=== PATIENT | male | born 1935 | race Caucasian/White ===

== ENCOUNTER 2016-12-13 12:13 | Inpatient (IN) | payer MEDICARE, OTHER ==
--- NOTE | ~2016-12-13 | CN ---
Consultation Report [facility] [address] [place]. [address] NAME: DUSTIN CASTELAN : 37 STATUS : ADM IN PAT#: [id number] AGE: 81 ADM/REG DATE : 12/13/16 MR#: [id number] REPORT SERV DATE: 12/15/16 DICTATED BY: DATE: REPORT STATUS : Draft TRANSCRIBED BY: MODL DATE: 12/15/16 NEUROLOGY CONSULTATION DATE OF CONSULTATION: 12/15/2016 REASON FOR CONSULT: Stroke and gait abnormality. HISTORY OF PRESENT ILLNESS: This is a 81-year-old male who presented to [facility] secondary to increasing difficulty walking according to the patient's roommate who are all Pent[employer] priests. The patient was noted to have increasing difficulty ambulating for at least the past six months with the patient averaging about 1 falls per week until roughly a week ago when the patient had sustained 4 falls in that week. The patient, about 6 months ago, had to start using walker to ambulate secondary to balance issue as well as apparent bilateral lower extremity weakness as well as shuffling gait with the patient's companions reports that the patient has been taking increasingly small steps when ambulating and has been unsteady. The patient, roughly a week ago, has sustained a fall, where the patient hit his head, otherwise, afterwards was noted to have a series of falls. The patient episodically will get muscle pains in the anterior thigh area as well as occasional back pain but no constant pain was noted. The patient does complain of some cervical pain after recent falls. The patient does have issues with constipation and sometimes alternating with the constipation and diarrhea. The patient recently, over at least the past two days to a week, was noted to have difficulty controlling the patient's bladder. Otherwise the patient's roommate reports the patient appeared to have increasing difficulties with word finding as well as apparent confusion with the patient taking a long time to answer questions at times and sometimes appeared to have disorientation with the patient noted to have word-finding difficulty, apparently worse over the past week-to-two weeks. The patient also was noted to have a history of resting tremor for the past several months to possibly several years that was very mild; does not appear to have any significant worsening. The patient denies any lightheadedness or orthostasis with standing up. No recent illness, fever, chills, nausea, vomiting, chest pain, or shortness of breath was otherwise reported. No recent changes in medication was otherwise reported. 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 ALLERGIES: THE PATIENT WAS NOTED TO HAVE NO KNOWN DRUG ALLERGIES. HOME MEDICATIONS: Consist of Maxzide; Proscar; atenolol; lisinopril; Prozac; and inhaler. FAMILY HISTORY: Significant for coronary artery disease. PAST MEDICAL HISTORY: The patient's past medical history is significant for COPD as well as hypertension and was noted to have difficulty with balance. No history of dementia or hallucination. Consultation Report [place] [id number] [facility] [place]. [address] NAME: DUSTIN CASTELAN : 37 STATUS : ADM IN [facility]#: [id number] AGE: 81 ADM/REG DATE : 12/13/16 MR#: [id number] REPORT SERV DATE: 12/15/16 DICTATED BY: DATE: REPORT STATUS : Draft TRANSCRIBED BY: MODL DATE: 12/15/16 REVIEW OF SYSTEMS: Negative except for those mentioned in the HPI. PHYSICAL EXAMINATION: VITAL SIGNS: At the time of evaluation, the patient was noted to have vital signs with T- max of 98.5, heart rate of 56 to 77, respirations of 16 to 18, and blood pressure of 117 to 195 over 60 to 100. GENERAL: The patient is well developed, well nourished, in no acute distress. CARDIOVASCULAR: Regular rate and rhythm. No carotid bruits were otherwise auscultated. PULMONARY: Examination was clear to auscultation bilaterally. NEUROLOGICAL: Generally the patient is alert and oriented to person, place, and not to year or month. The patient, now spoke with Theodore, cannot answer who the President is; was noted to have bradykinesia at the time of evaluation with the patient noted to have decreased attention span; was also noted to have massive facies at the time of evaluation. Cranial nerves 2 through 12, pupils equal, round, and reactive to light. Extraocular eye movement was noted to be intact. The patient was noted to have intact [id number] response at the time of evaluation. Symmetrical facial expression. Midline tongue. Normal palatal movement. Decreased hearing in bilateral ears. Symmetrical facial sensation bilaterally. The patient was noted to have mild resting tremor, left greater than right at the time of evaluation with the patient noted to have rigidity, again left worse than right at the time of evaluation. 4+/5 bilateral upper extremity and bilateral lower extremity strength at the time of evaluation. Reports symmetrical sensation. Was noted to have mild postural tremor as well as intentional tremor. No clear ataxia noted. The patient was noted to have difficulty sitting up unsupported with retropulsion at the time of evaluation, otherwise. Gait was not evaluated secondary to difficulty sitting up. LABORATORY STUDIES: The patient's laboratory studies demonstrated white blood cell count of 7.7, hemoglobin of 13.1, hematocrit of 36.9, and platelet count of 134. Chemistry panel: Sodium 140, potassium of 3.2, chloride of 106, bicarb of 27, BUN of 17, and creatinine 0.90. Glucose of 96, calcium of 8.8, and magnesium of 2.0. At the time of evaluation, the patient was noted to have MRI of the brain demonstrated left subcortical periventricular stroke that is acute. IMPRESSION: 1. Left subcortical stroke. We will continue aspirin and Lipitor. Counseled the patient regarding tobacco cessation. PT/OT, echocardiogram is pending. We will obtain fasting lipid panel and hemoglobin A1c with morning labs. 2. Gait abnormality ongoing for the past six months. It is unlikely the patient's stroke is the reason for the patient's ongoing gait abnormality preceding the event as the patient's stroke appeared to be acute. The patient's stroke however may have contributed to the acute worsening and more frequent falls. The patient does have symptoms concerning for possible Parkinson's disease including bradykinesia as well as resting tremor as well as small steps on walking. We will start the patient on trial of Sinemet as well as check MRI of the C-spine. We will also check a laboratory study Consultation Report [place] [id number] [place]. [address] NAME: DUSTIN CASTELAN : 37 STATUS : ADM IN PAT#: [id number] AGE: 81 ADM/REG DATE : 12/13/16 MR#: [id number] REPORT SERV DATE: 12/15/16 DICTATED BY: DATE: REPORT STATUS : Draft TRANSCRIBED BY: MODL DATE: 12/15/16 including vitamin B12, folate, TSH, free T4, and serum CPK. We will continue PT/OT treatment and evaluation and possible rehab. RECOMMENDATIONS: 1. Aspirin and Lipitor. 2. Vitamin B12, folate, TSH, free T4, CPK level with morning labs. 3. Fasting lipid panel and hemoglobin A1c. 4. Echocardiogram pending. 5. PT/OT. 6. MRI of C-spine without contrast. 7. Sinemet 25/100 mg half tablet p.o. t.i.d. 8. Orthostatic vitals. CCH/MODL Rodri Gil MD / [id number] CC: DO Bryant Pitts M.D.
--- NOTE | ~2016-12-13 | DS ---
Discharge Summary [place] [id number] [place]. [address] NAME: DUSTIN CASTELAN : 37 STATUS : DIS IN PAT#: [id number] AGE: 81 ADM/REG DATE : 12/13/16 MR#: [id number] REPORT SERV DATE: 12/21/16 DICTATED BY: CHIDI BEAN DATE: 12/20/16 REPORT STATUS : Draft TRANSCRIBED BY: MODL DATE: 12/20/16 ADMISSION DATE: 12/13/2016 DISCHARGE DATE: 12/20/2016 ADDENDUM: orthostasis taking two minutes to go from seated to standing position. Hydralazine 25 p.o. t.i.d. p.r.n. systolic more than 170, aspirin 325 p.o. daily, Lipitor 80 p.o. daily, as well as Sinemet 25/100 one tablet p.o. t.i.d., carvedilol 6.25 p.o. b.i.d., Proscar 5 p.o. daily, Prozac 20 p.o. daily, as well as Imdur 60 p.o. daily give in the morning at 8 a.m., lisinopril 40 p.o. daily, nicotine transdermal patch 14 mg patch daily, Anoro Ellipta. We will also get a sleep study given nighttime hypertension, hydralazine 25 p.o. t.i.d. p.r.n. The patient's delay in discharge is due to insurance. Did have some positive orthostasis likely leading to a controlled sitting on his buttocks on the floor. Did not have any loss of conscious. Did not have any trauma. Range of motion is fully intact. See rest of my orders. All questions were answered. Took well over 30 minutes to do. DICTATED BY: DO ARSENIO Pitts/LEONEL Chidi Bean DO / [id number] CC: DO Bryant Pitts M.D.
--- NOTE | ~2016-12-13 | HP ---
History And Physical [place] [id number] [facility] [place]. [address] NAME: DUSTIN CASTELAN : 37 STATUS : ADM IN PAT#: [id number] AGE: 81 ADM/REG DATE : 12/13/16 MR#: [id number] REPORT SERV DATE: 12/14/16 DICTATED BY: BHARTI FARFAN DATE: 12/13/16 REPORT STATUS : Draft TRANSCRIBED BY: MODL DATE: 12/13/16 DATE OF ADMISSION: 12/13/2016 REASON FOR ADMISSION: Ataxia. 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 He has had multiple falls with inability to sit or stand and he presented to primary care provider who referred him to us. The patient says he had a first major fall 6 months ago. He began using a walker at that time. He has had a gradual decline in his strength and about a 20- pound weight loss over the subsequent 6 months, although he says his appetite is okay. Things were okay until the last several days when he had a large fall on 12/12/2016. He did hit the back of his head, but did not seek medical attention for this. There were some bruising at that location. 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 No other injuries were noted, although he has some scratches on his arms. The patient actually had become confused over the weekend and wandered, was found outside the house where the priests were living. He had fallen outside and required assistance getting up. He is unable to stand without assistance and has become unable to sit without assistance. There has been an increase in generalized weakness, particularly bilateral lower extremity weakness. No numbness. He has had some neck pain after the falls, but no low back pain. No headaches. No change in his chronic shortness of breath with chronic coughing and wheezing, which he associates with smoking. He denies any history of cardiovascular disease or complaints to nausea or vomiting. Does have history of constipation. No genitourinary complaints. No bleeding. No fevers. REVIEW OF SYSTEMS: The remainder of review of systems are negative. PAST MEDICAL HISTORY: As mentioned above. Also BPH. MEDICATIONS: Include Proscar, Maxzide, atenolol, lisinopril, Prozac, and Anoro inhaler. ALLERGIES: NO ALLERGIES. FAMILY HISTORY: Positive for coronary artery disease. 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 PHYSICAL EXAMINATION: VITAL SIGNS: On presentation at the primary care provider's office was 120/90, pulse 64, respirations 16, and afebrile. Blood pressure was as high as 220 here at [facility]. GENERAL: On exam, awake, alert, and oriented x3. Comfortable. No apparent distress. HEENT: Pupils are reactive to light. Extraocular movements are intact. He had no cranial nerve deficits. Moist mucous membranes. Normal oropharynx. He had normal visual ko and no nystagmus. History And Physical [address] [place]. [address] NAME: DUSTIN CASTELAN : 37 STATUS : ADM IN [facility]#: [id number] AGE: 81 ADM/REG DATE : 12/13/16 MR#: [id number] REPORT SERV DATE: 12/14/16 DICTATED BY: BHARTI FARFAN DATE: 12/13/16 REPORT STATUS : Draft TRANSCRIBED BY: LEONEL DATE: 12/13/16 NECK: Supple with some tenderness in the posterior musculature with some induced tenderness with active range of motion, but good range of motion. He had no jugular venous distention, carotid bruits, lymphadenopathy, or goiter and no Spurling sign. CARDIAC: Regular rate and rhythm. No murmurs, gallops, or rubs. He had no reproducible tenderness. LUNGS: Clear to auscultation bilaterally. Good excursion. Few rhonchi were noted. ABDOMEN: Nondistended and nontender. Bowel sounds normal and active. EXTREMITIES: No cyanosis, clubbing, or trace edema. Only good pulses and diminished capillary refill. NEUROLOGIC: 5/5 strength in all four extremities. No finger-nose test, however, he had very diminished [id number] test on the left side with inability to perform the exam. He had no bradykinesia. No cogwheel rigidity and normal deep tender reflexes x4 with negative Babinski sign. SKIN: Warm and dry. PSYCHIATRIC: He is appropriate. LABORATORY EVALUATION: Sodium 141, potassium 3.7, chloride 103, bicarb 33, BUN 16, creatinine 1.04, and glucose 113. Magnesium phosphorus within normal limits. LDL 96. Liver function enzymes normal other than total bilirubin at 1.3. Ionized calcium 4.5. Ammonia 13. White count 8.5, H and H 13 and 39, and platelets 137. ASSESSMENT AND PLAN: 1. Frequent falls with left lower extremity ataxia concerning for a cerebellar stroke or brainstem event. Differential diagnosis also, however, includes cerebral hemorrhage. Certainly, he has impact of age and increase slow processing and chronic cognitive and physical decline contributes mildly to this. We will rule out orthostatic hypotension. We will check an MRI with MRA of the brain given the concern for posterior events. This does not appear to be compatible with cervical spine disease, although given his neck pain. X-ray should be investigated. 2. Hypertension. Blood pressure was accelerated here in [facility]. He did not receive his home medicines this morning. We will resume those, although hold his Maxzide due to the hypokalemia and concern for volume depletion. Hydralazine will be given p.r.n. 3. Chronic obstructive pulmonary disease, not exacerbated. 4. Weight loss. Nutritional therapies are recommended and I am concerned about the possible hypogonadism and due to his Proscar, we will follow this expectantly. RSM/LEONEL Bharti Farfan M.D. / [id number] CC: Bharti Farfan M.D. History And Physical [address] [address] NAME: DUSTIN CASTELAN : 37 STATUS : ADM IN [facility]#: [id number] AGE: 81 ADM/REG DATE : 12/13/16 MR#: [id number] REPORT SERV DATE: 12/14/16 DICTATED BY: BHARTI FARFAN DATE: 12/13/16 REPORT STATUS : Draft TRANSCRIBED BY: MODL DATE: 12/13/16 Bryant Krishnan M.D.
--- NOTE | ~2016-12-13 | DS ---
Discharge Summary [facility] [address] [facility] [place]. [address] NAME: DUSTIN CASTELAN : 37 STATUS : ADM IN PAT#: [id number] AGE: 81 ADM/REG DATE : 12/13/16 MR#: [id number] REPORT SERV DATE: 12/18/16 DICTATED BY: CHIDI BEAN DATE: 12/17/16 REPORT STATUS : Draft TRANSCRIBED BY: MODL DATE: 12/17/16 ADMISSION DATE: 12/13/2016 DISCHARGE DATE: 12/17/2016 HOSPITAL COURSE: A 81-year-old male with known history of COPD, hypertension, as well as a history of generalized anxiety disorder, BPH. The patient came in with increasing ataxia, multiple falls, began six months prior to coming in and gradual decline in strength, 20-pound weight loss. The patient was sent here by the advice of a fellow sheet metal technician for increasing confusion, lower extremity weakness, the patient as a result had an MRI of his brain that showed acute small left periventricular infarction on the left side, additional small area adjacent to the ventricle on the left measuring 5 x 5 mm superimposed on moderate amount of gliotic changes in right and left centrum semiovale with atrophy. Mid brain atrophy also identified. The patient therefore has full stroke workup, for which a carotid ultrasound showed only left and right carotid category 1, less than 50% stenosis. No vulnerable plaque identified. The patient also had an MRI of cervical spine without C3-C4 nonoperable bilateral osteophytic encroachment to neural foramen displaying left to right C4 root irritation, cord mildly effaced C3-C4; however, no evidence of any significant central canal herniation. No associated evidence of any disruption of posterior bony elements to suggest instability. The patient regarding his ataxia was thought to have obviously has some bradykinesia associated with possible clinical Parkinson's, he was started on Sinemet now the t.i.d. dosing at low dose 25 mg. He had a lumbar spine as well regarding the ataxia it did show neuroforaminal encroachment on the right L3-L5 and on the left L3-L5. It is not stated they have been moderate or severe. The patient likely has multifactorial ataxia issues from dementia, Parkinson's, neuroforaminal encroachment. He will be fully evaluated by orthopedic surgeon. The patient had a swallow study. No aspiration identified. Therapy though on recommended speech therapy. The patient has been orthostatic here, should educate the patient on spending 2 minutes going from a lying to standing position. The patient understands he needs to stop smoking, optimize other stroke risk factors. DISCHARGE MEDICATIONS: 1. Aspirin 325 mg p.o. daily. 2. Lipitor 80 mg p.o. daily. 3. Sinemet 25/100 mg one tablet p.o. t.i.d. 4. Carvedilol 6.25 mg p.o. b.i.d. 5. Finasteride 5 mg p.o. daily. 6. Prozac 20 mg p.o. daily. 7. Imdur 30 mg p.o. daily. 8. Lisinopril 40 mg p.o. daily. 9. Nicotine transdermal patch 14 mg patch daily. 10.Anoro Ellipta 62.5/25 mcg one puff inhale daily. 11.Hydralazine 25 mg p.o. t.i.d. p.r.n. systolic more 170 p.r.n. medication. 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 Discharge Summary [address] [address] NAME: DUSTIN CASTELAN : 37 STATUS : ADM IN [facility]#: [id number] AGE: 81 ADM/REG DATE : 12/13/16 MR#: [id number] REPORT SERV DATE: 12/18/16 DICTATED BY: CHIDI BEAN DATE: 12/17/16 REPORT STATUS : Draft TRANSCRIBED BY: MODL DATE: 12/17/16 PROCEDURES: See above. He also had an echocardiogram, LVEF 55%. Normal LV diastolic function. Normal RV size and function. Mildly calcified aortic valve without significant aortic stenosis. All questions were answered. It took well over 30 minutes to do. DISCHARGE DIAGNOSES: See above including left subcortical stroke x2, hypertension, chronic obstructive pulmonary disease, benign prostatic hypertrophy, smoking cessation, bradykinesia clinical, and Parkinson's. WST/JOANNL Chidi Bean DO / [id number] CC: DO Bryant Pitts M.D.
[~2016-12-13 12:13] MED LIST: ATEN50 PO; ATENOLOL; CLARIT10 PO; FLOMAX4 PO; HCTZ; LISINOPRIL; LORATADINE; MAX25 PO; MUCINEX; MUCINEX DM1 TAB OR; PROSCAR5 PO; PROZAC; PROZAC PO; TRIAMTERENE; ZESTRIL30 MG PO
[2016-12-13 14:45] LABS: CALCIUM IONIZED 4.53 MG/DL (3.80-4.80)
[2016-12-13 14:45] LABS: BASOPHILS 0.2 %; BASOPHILS ABSOLUTE 0.02 10/3/uL (0.0-0.16); EOSINOPHILS 2.8 %; EOSINOPHILS ABSOLUTE 0.24 10/3/uL (0.0-0.53); HEMATOCRIT 38.7 % (40.0-51.0); HEMOGLOBIN 13.8 g/dL (13.6-17.8); IMMATURE GRANULOCYTES 0.2 %; IMMATURE GRANULOCYTES ABSOLUTE 0.02 10/3/uL (0.0-0.11); LYMPHOCYTES 9.3 %; LYMPHOCYTES ABSOLUTE 0.79 10/3/uL (0.67-4.30); MEAN CORPUS HGB CONC 35.7 g/dL (32.0-36.0); MEAN CORPUSCULAR HEMOGLOB 31.9 pg (26.0-34.0); MEAN CORPUSCULAR VOLUME 89.4 fL (80-100); MEAN PLATELET VOLUME 10.5 fL (9.2-13.0); MONOCYTES 8.3 %; MONOCYTES ABSOLUTE 0.71 10/3/uL (0.21-1.20); NEUTROPHILS 79.2 %; NEUTROPHILS ABSOLUTE 6.76 10/3/uL (2.02-8.40); PLATELET COUNT 137 10/3/uL (150-400); RBC DISTRIBUTION WIDTH 13.7 % (12.0-16.0); RED CELL COUNT 4.33 10/6/uL (4.7-6.1); WHITE BLOOD CELLS 8.5 10/3/uL (4.5-10.5)
[2016-12-13 14:46] LABS: MANUAL DIFF NO %
[2016-12-13 15:03] LABS: A/G RATIO 1.5 (0.7-1.9); ALKALINE PHOSPHATASE 86 U/L (45-117); BUN (BLOOD UREA NITROGEN) 16 MG/DL (6-23); CHLORIDE, SERUM 103 MMOL/L (96-112); CHOL/HDL RATIO(NOT ORDER) 2.8 (0-5); CHOLESTEROL 174 MG/DL (< 200); CO2 (CARBON DIOXIDE) 32 MMOL/L (24-34); CREATININE 1.04 MG/DL (0.70-1.30); GFR AFRICAN AMERICAN 79 ML/MIN (>=60); GFR NON AFRICAN AMERICAN 68 ML/MIN (>=60); GLOBULIN 2.6 G/DL (2.5-4.1); HDL CHOLESTEROL 62 MG/DL (> 39); LDL CHOLESTEROL 96 MG/DL (< 130); NON-HDL CHOLESTEROL 112 MG/DL (< 160); PHOSPHORUS, SERUM 2.5 MG/DL (2.5-4.5); SGOT(AST) 13 U/L (5-40); SGPT(ALT) 17 U/L (5-65); SODIUM, SERUM 141 MMOL/L (135-148); TOTAL BILIRUBIN 1.3 MG/DL (0-1.2); TOTAL PROTEIN 6.6 G/DL (6.0-8.5); TRIGLYCERIDE 81 MG/DL (< 150)
[2016-12-13 15:04] LABS: GLUCOSE, SERUM 113 MG/DL (60-99); POTASSIUM, SERUM 2.7 MMOL/L (3.5-5.3)
[2016-12-14] MEDS ORDERED: PROZAC PO (12:05)
[2016-12-14] MEDS ORDERED: MAX25 PO (12:05)
[2016-12-14] MEDS ORDERED: PROSCAR5 PO (12:05)
[2016-12-14] MEDS ORDERED: ATEN50 PO (12:05)
[2016-12-15 05:41] LABS: BASOPHILS 0.4 %; BASOPHILS ABSOLUTE 0.03 10/3/uL (0.0-0.16); EOSINOPHILS ABSOLUTE 0.31 10/3/uL (0.0-0.53); HEMATOCRIT 36.9 % (40.0-51.0); HEMOGLOBIN 13.1 g/dL (13.6-17.8); IMMATURE GRANULOCYTES 0.1 %; IMMATURE GRANULOCYTES ABSOLUTE 0.01 10/3/uL (0.0-0.11); LYMPHOCYTES 16.6 %; LYMPHOCYTES ABSOLUTE 1.27 10/3/uL (0.67-4.30); MEAN CORPUS HGB CONC 35.5 g/dL (32.0-36.0); MEAN CORPUSCULAR HEMOGLOB 31.9 pg (26.0-34.0); MEAN CORPUSCULAR VOLUME 89.8 fL (80-100); MEAN PLATELET VOLUME 10.6 fL (9.2-13.0); MONOCYTES 8.1 %; MONOCYTES ABSOLUTE 0.62 10/3/uL (0.21-1.20); NEUTROPHILS 70.8 %; NEUTROPHILS ABSOLUTE 5.43 10/3/uL (2.02-8.40); PLATELET COUNT 134 10/3/uL (150-400); RBC DISTRIBUTION WIDTH 13.8 % (12.0-16.0); RED CELL COUNT 4.11 10/6/uL (4.7-6.1); WHITE BLOOD CELLS 7.7 10/3/uL (4.5-10.5)
[2016-12-15 05:42] LABS: MANUAL DIFF NO %
[2016-12-15 05:57] LABS: BUN (BLOOD UREA NITROGEN) 17 MG/DL (6-23); CALCIUM, SERUM 8.8 MG/DL (8.5-10.4); CHLORIDE, SERUM 106 MMOL/L (96-112); GFR AFRICAN AMERICAN 94 ML/MIN (>=60); GFR NON AFRICAN AMERICAN 81 ML/MIN (>=60); GLUCOSE, SERUM 96 MG/DL (60-99); PHOSPHORUS, SERUM 2.5 MG/DL (2.5-4.5); POTASSIUM, SERUM 3.2 MMOL/L (3.5-5.3); SODIUM, SERUM 140 MMOL/L (135-148)
[2016-12-15 06:00] LABS: CO2 (CARBON DIOXIDE) 27 MMOL/L (24-34)
[2016-12-16 04:48] LABS: BASOPHILS 0.3 %; BASOPHILS ABSOLUTE 0.02 10/3/uL (0.0-0.16); EOSINOPHILS 4.6 %; EOSINOPHILS ABSOLUTE 0.35 10/3/uL (0.0-0.53); HEMATOCRIT 37.9 % (40.0-51.0); HEMOGLOBIN 13.2 g/dL (13.6-17.8); IMMATURE GRANULOCYTES 0.1 %; IMMATURE GRANULOCYTES ABSOLUTE 0.01 10/3/uL (0.0-0.11); LYMPHOCYTES 10.6 %; LYMPHOCYTES ABSOLUTE 0.81 10/3/uL (0.67-4.30); MANUAL DIFF NO %; MEAN CORPUS HGB CONC 34.8 g/dL (32.0-36.0); MEAN CORPUSCULAR HEMOGLOB 31.4 pg (26.0-34.0); MEAN CORPUSCULAR VOLUME 90.2 fL (80-100); MEAN PLATELET VOLUME 10.7 fL (9.2-13.0); MONOCYTES 9.9 %; MONOCYTES ABSOLUTE 0.76 10/3/uL (0.21-1.20); NEUTROPHILS 74.5 %; NEUTROPHILS ABSOLUTE 5.69 10/3/uL (2.02-8.40); PLATELET COUNT 143 10/3/uL (150-400); RBC DISTRIBUTION WIDTH 13.9 % (12.0-16.0); WHITE BLOOD CELLS 7.6 10/3/uL (4.5-10.5)
[2016-12-16 05:33] LABS: CALCIUM, SERUM 8.7 MG/DL (8.5-10.4); CHLORIDE, SERUM 107 MMOL/L (96-112); CO2 (CARBON DIOXIDE) 26 MMOL/L (24-34); CPK 70 U/L (0-200); CREATININE 0.97 MG/DL (0.70-1.30); FREE T4 1.09 NG/DL (0.76-1.46); GFR AFRICAN AMERICAN 86 ML/MIN (>=60); GFR NON AFRICAN AMERICAN 74 ML/MIN (>=60); GLUCOSE, SERUM 98 MG/DL (60-99); POTASSIUM, SERUM 3.4 MMOL/L (3.5-5.3); SODIUM, SERUM 141 MMOL/L (135-148); TRIGLYCERIDE 74 MG/DL (< 150)
[2016-12-16 05:35] LABS: BUN (BLOOD UREA NITROGEN) 21 MG/DL (6-23); CHOL/HDL RATIO(NOT ORDER) 2.8 (0-5); CHOLESTEROL 136 MG/DL (< 200); FOLATE 13.7 NG/ML (>5.2); HDL CHOLESTEROL 49 MG/DL (> 39); LDL CHOLESTEROL 73 MG/DL (< 130); NON-HDL CHOLESTEROL 87 MG/DL (< 160)
[2016-12-16 13:18] LABS: GLYCOHEMOGLOBIN (HbA1c) 5.2 % (4.7-6.1)
[2016-12-17 07:37] LABS: BASOPHILS 0.2 %; BASOPHILS ABSOLUTE 0.01 10/3/uL (0.0-0.16); EOSINOPHILS 4.7 %; IMMATURE GRANULOCYTES 0.3 %; IMMATURE GRANULOCYTES ABSOLUTE 0.02 10/3/uL (0.0-0.11); LYMPHOCYTES 10.5 %; LYMPHOCYTES ABSOLUTE 0.67 10/3/uL (0.67-4.30); MEAN CORPUS HGB CONC 35.4 g/dL (32.0-36.0); MEAN CORPUSCULAR HEMOGLOB 31.8 pg (26.0-34.0); MEAN CORPUSCULAR VOLUME 89.9 fL (80-100); MEAN PLATELET VOLUME 10.6 fL (9.2-13.0); MONOCYTES 10.2 %; MONOCYTES ABSOLUTE 0.65 10/3/uL (0.21-1.20); NEUTROPHILS 74.1 %; NEUTROPHILS ABSOLUTE 4.72 10/3/uL (2.02-8.40); PLATELET COUNT 140 10/3/uL (150-400); RBC DISTRIBUTION WIDTH 14.2 % (12.0-16.0); RED CELL COUNT 3.77 10/6/uL (4.7-6.1); WHITE BLOOD CELLS 6.4 10/3/uL (4.5-10.5)
[2016-12-17 07:39] LABS: HEMATOCRIT 33.9 % (40.0-51.0); MANUAL DIFF NO %
[2016-12-17 07:51] LABS: CALCIUM, SERUM 8.6 MG/DL (8.5-10.4); CHLORIDE, SERUM 108 MMOL/L (96-112); CO2 (CARBON DIOXIDE) 26 MMOL/L (24-34); CREATININE 1.09 MG/DL (0.70-1.30); GFR AFRICAN AMERICAN 74 ML/MIN (>=60); GFR NON AFRICAN AMERICAN 64 ML/MIN (>=60); GLUCOSE, SERUM 99 MG/DL (60-99); PHOSPHORUS, SERUM 3.1 MG/DL (2.5-4.5); POTASSIUM, SERUM 3.3 MMOL/L (3.5-5.3); SODIUM, SERUM 142 MMOL/L (135-148)
[2016-12-17 07:52] LABS: BUN (BLOOD UREA NITROGEN) 28 MG/DL (6-23)
[2016-12-18 07:25] LABS: BASOPHILS 0.3 %; BASOPHILS ABSOLUTE 0.02 10/3/uL (0.0-0.16); EOSINOPHILS 4.1 %; EOSINOPHILS ABSOLUTE 0.27 10/3/uL (0.0-0.53); HEMATOCRIT 33.1 % (40.0-51.0); HEMOGLOBIN 11.9 g/dL (13.6-17.8); IMMATURE GRANULOCYTES 0.3 %; IMMATURE GRANULOCYTES ABSOLUTE 0.02 10/3/uL (0.0-0.11); LYMPHOCYTES 11.9 %; LYMPHOCYTES ABSOLUTE 0.78 10/3/uL (0.67-4.30); MEAN CORPUSCULAR HEMOGLOB 31.6 pg (26.0-34.0); MEAN CORPUSCULAR VOLUME 87.8 fL (80-100); MEAN PLATELET VOLUME 10.2 fL (9.2-13.0); MONOCYTES 10.7 %; NEUTROPHILS 72.7 %; NEUTROPHILS ABSOLUTE 4.75 10/3/uL (2.02-8.40); PLATELET COUNT 141 10/3/uL (150-400); RBC DISTRIBUTION WIDTH 13.9 % (12.0-16.0); RED CELL COUNT 3.77 10/6/uL (4.7-6.1); WHITE BLOOD CELLS 6.5 10/3/uL (4.5-10.5)
[2016-12-18 07:27] LABS: MANUAL DIFF NO %
[2016-12-18 07:38] LABS: BUN (BLOOD UREA NITROGEN) 25 MG/DL (6-23); CALCIUM, SERUM 8.4 MG/DL (8.5-10.4); CHLORIDE, SERUM 108 MMOL/L (96-112); CO2 (CARBON DIOXIDE) 28 MMOL/L (24-34); CREATININE 0.98 MG/DL (0.70-1.30); GFR AFRICAN AMERICAN 85 ML/MIN (>=60); GFR NON AFRICAN AMERICAN 73 ML/MIN (>=60); GLUCOSE, SERUM 90 MG/DL (60-99); PHOSPHORUS, SERUM 3.1 MG/DL (2.5-4.5); SODIUM, SERUM 140 MMOL/L (135-148)
[2016-12-19 05:03] LABS: BASOPHILS 0.3 %; BASOPHILS ABSOLUTE 0.02 10/3/uL (0.0-0.16); EOSINOPHILS 3.1 %; EOSINOPHILS ABSOLUTE 0.21 10/3/uL (0.0-0.53); HEMATOCRIT 35.3 % (40.0-51.0); HEMOGLOBIN 12.4 g/dL (13.6-17.8); IMMATURE GRANULOCYTES 0.3 %; IMMATURE GRANULOCYTES ABSOLUTE 0.02 10/3/uL (0.0-0.11); LYMPHOCYTES 9.1 %; LYMPHOCYTES ABSOLUTE 0.62 10/3/uL (0.67-4.30); MEAN CORPUS HGB CONC 35.1 g/dL (32.0-36.0); MEAN CORPUSCULAR HEMOGLOB 31.5 pg (26.0-34.0); MEAN CORPUSCULAR VOLUME 89.6 fL (80-100); MEAN PLATELET VOLUME 10.5 fL (9.2-13.0); MONOCYTES 9.7 %; MONOCYTES ABSOLUTE 0.66 10/3/uL (0.21-1.20); NEUTROPHILS 77.5 %; NEUTROPHILS ABSOLUTE 5.29 10/3/uL (2.02-8.40); PLATELET COUNT 151 10/3/uL (150-400); RBC DISTRIBUTION WIDTH 13.9 % (12.0-16.0); RED CELL COUNT 3.94 10/6/uL (4.7-6.1); WHITE BLOOD CELLS 6.8 10/3/uL (4.5-10.5)
[2016-12-19 05:04] LABS: BUN (BLOOD UREA NITROGEN) 23 MG/DL (6-23); CALCIUM, SERUM 8.7 MG/DL (8.5-10.4); CHLORIDE, SERUM 109 MMOL/L (96-112); CREATININE 0.98 MG/DL (0.70-1.30); GFR AFRICAN AMERICAN 85 ML/MIN (>=60); GFR NON AFRICAN AMERICAN 73 ML/MIN (>=60); GLUCOSE, SERUM 96 MG/DL (60-99); PHOSPHORUS, SERUM 2.8 MG/DL (2.5-4.5); POTASSIUM, SERUM 3.8 MMOL/L (3.5-5.3); SODIUM, SERUM 140 MMOL/L (135-148)
[2016-12-19 05:05] LABS: MANUAL DIFF NO %
[2016-12-19 05:07] LABS: CO2 (CARBON DIOXIDE) 23 MMOL/L (24-34)
[2016-12-20 07:05] LABS: BASOPHILS 0.2 %; BASOPHILS ABSOLUTE 0.01 10/3/uL (0.0-0.16); EOSINOPHILS ABSOLUTE 0.22 10/3/uL (0.0-0.53); HEMATOCRIT 34.8 % (40.0-51.0); HEMOGLOBIN 12.2 g/dL (13.6-17.8); IMMATURE GRANULOCYTES 0.2 %; IMMATURE GRANULOCYTES ABSOLUTE 0.01 10/3/uL (0.0-0.11); LYMPHOCYTES ABSOLUTE 0.66 10/3/uL (0.67-4.30); MEAN CORPUS HGB CONC 35.1 g/dL (32.0-36.0); MEAN CORPUSCULAR HEMOGLOB 31.7 pg (26.0-34.0); MEAN CORPUSCULAR VOLUME 90.4 fL (80-100); MEAN PLATELET VOLUME 10.2 fL (9.2-13.0); MONOCYTES 10.9 %; NEUTROPHILS 72.7 %; PLATELET COUNT 158 10/3/uL (150-400); RBC DISTRIBUTION WIDTH 13.6 % (12.0-16.0); RED CELL COUNT 3.85 10/6/uL (4.7-6.1); WHITE BLOOD CELLS 5.5 10/3/uL (4.5-10.5)
[2016-12-20 07:06] LABS: MANUAL DIFF NO %
[2016-12-20 07:19] LABS: BUN (BLOOD UREA NITROGEN) 22 MG/DL (6-23); CALCIUM, SERUM 8.4 MG/DL (8.5-10.4); CHLORIDE, SERUM 108 MMOL/L (96-112); CO2 (CARBON DIOXIDE) 27 MMOL/L (24-34); CREATININE 0.92 MG/DL (0.70-1.30); GFR AFRICAN AMERICAN 91 ML/MIN (>=60); GFR NON AFRICAN AMERICAN 79 ML/MIN (>=60); GLUCOSE, SERUM 94 MG/DL (60-99); PHOSPHORUS, SERUM 2.8 MG/DL (2.5-4.5); POTASSIUM, SERUM 3.9 MMOL/L (3.5-5.3); SODIUM, SERUM 141 MMOL/L (135-148)
== END 2016-12-20 13:38 | DRG 66 ==
LOC: 1SO 12:13
PROVIDERS: Internal Medicine; Psychiatry & Neurology Neurology
DX: I63.9 Cerebral infarction, unspecified (principal); G20 Parkinson's disease; J44.9 Chronic obstructive pulmonary disease, unspecified; R47.01 Aphasia; R27.0 Ataxia, unspecified; I95.1 Orthostatic hypotension; N40.0 Benign prostatic hyperplasia without lower urinary tract symptoms; R13.12 Dysphagia, oropharyngeal phase; I16.0 Hypertensive urgency; F41.1 Generalized anxiety disorder; E87.6 Hypokalemia; R63.4 Abnormal weight loss; F17.210 Nicotine dependence, cigarettes, uncomplicated; R29.6 Repeated falls; Z91.81 History of falling; Z79.899 Other long term (current) drug therapy
CPT/HCPCS: 70544; 70547; 70551; 71010; 72040; 72141; 72148; 74230; 80048; 80053; 80061; 82140; 82330; 82550; 82607; 82746; 83036; 83735; 84100; 84132; 84439; 84443; 85025; 92523-GN; 92610-GN; 92611-GN; 93005; 93306; 93880; 97110-GO; 97110-GP; 97112-GO; 97116-GP; 97162-GP; 97166-GO; 97530-GO; 97530-GP; 97535-GO; A9270-GY; G8978-CK-GP; G8979-CJ-GP; G8987-CK-GO; G8988-CJ-GO; G8996-CK-GN; G8997-CK-GN; G8998-CK-GN; G9162-CL-GN; G9163-CJ-GN; J0360